=== PATIENT | male | born 1985 | race Two or more races ===

== ENCOUNTER 2020-01-22 22:35 | Emergency (ER) | payer SELFPAY ==
[~2020-01-22] VITALS: Ht 177.8 cm; Wt 91.9 kg
[2020-01-22 22:40] VITALS: BP 141/90
[2020-01-22] MEDS ORDERED: ACETAMINOPHEN 500 MG TABLET ONE (22:44)
--- NOTE | 2020-01-22 22:47 | NUR ---
HEEL DIPPER: PT MEDICATED PER STANDING ORDER FOR FEVER. LAST TYLENOL THIS AM.
[2020-01-22] MEDS ORDERED: ACETAMINOPHEN 500 MG TABLET PO ONE (23:00)
--- NOTE | 2020-01-23 00:36 | NUR ---
DC EDUCATION PROVIDED, PT DEMONSTRATES UNDERSTANDING. PT AMBULATED STEADILY TO DC WITH RN AND SO
== END 2020-01-23 00:37 | disposition home or self-care (01) ==
LOC: ED 23:54
DX: J02.8 Acute pharyngitis due to other specified organisms (principal); B97.89 Other viral agents as the cause of diseases classified elsewhere; R50.9 Fever, unspecified; R05 Cough
CPT/HCPCS: 71045; 87081; 87880; 99284

== ENCOUNTER 2020-01-29 23:15 | Emergency (ER) | payer OTHER ==
[~2020-01-29] VITALS: Ht 177.8 cm; Wt 85.8 kg
[2020-01-29] MEDS ORDERED: ONDANSETRON ODT 4 MG ONE (23:44)
[2020-01-29 23:57] LABS: BASOPHILS # (AUTO) 0.01 x10^3/uL (0-0.1); BASOPHILS % (AUTO) 0 % (0-1); EOSINOPHILS # (AUTO) 0.02 x10^3/uL (0-0.4); EOSINOPHILS % (AUTO) 0 % (1-7); LYMPHOCYTES # (AUTO) 1.15 x10^3/uL (1-3.4); LYMPHOCYTES % (AUTO) 22 % (22-44); MD NO; MEAN CORPUSCULAR HEMOGLOBIN 31.6 pg (27.5-34.5); MEAN CORPUSCULAR HGB CONC 34.2 g/dL (33.2-36.2); MEAN CORPUSCULAR VOLUME 92.4 fL (81-97); MEAN PLATELET VOLUME 7.1 fL (7.4-10.4); MONOCYTES # (AUTO) 0.47 x10^3/uL (0.2-0.8); MONOCYTES % (AUTO) 9 % (2-9); NEUTROPHILS # (AUTO) 3.53 x10^3/uL (1.8-6.8); NEUTROPHILS % (AUTO) 68 % (42-75); PLATELET COUNT 226 x10^3/uL (130-400); RED BLOOD COUNT 4.94 x10^6/uL (4.38-5.82); RED CELL DISTRIBUTION WIDTH 13.1 % (9.4-14.8)
[2020-01-30] MEDS ORDERED: ONDANSETRON ODT 4 MG PO ONE
[2020-01-30 00:07] LABS: ALANINE AMINOTRANSFERASE 33 U/L (12-78); ALBUMIN 3.7 g/dL (3.4-5.0); ANION GAP 5 mmol/L (5-15); CALCIUM 8.6 mg/dL (8.5-10.1); CHLORIDE 106 mmol/L (98-107); CREATININE 0.98 mg/dL (0.7-1.3)
[2020-01-30 00:10] LABS: ALKALINE PHOSPHATASE 81 U/L (45-117); BILIRUBIN,TOTAL 0.5 mg/dL (0.2-1.0)
[2020-01-30 00:31] VITALS: BP 120/81
--- NOTE | 2020-01-30 00:32 | NUR ---
BREAK RN: VSS, SPO2 AND BP MONITORING IN PLACE, NADN. LUNG SOUNDS CLEAR BUT DIMINISHED THROUGHOUT. CALL LIGHT IN REACH. PATIENT STILL C/O NAUSEA, WILL CONSULT WITH ERP
--- NOTE | 2020-01-30 01:08 | NUR ---
Patient given discharge instructions and they have confirmed that they understand the instructions. Patient ambulatory with steady gait.
--- NOTE | 2020-01-31 16:56 | NUR ---
ATTEMPTED TO CALL PATIENT WITH COVID-19 RESULTS. MESSAGE LEFT AT NUMBER ON FILE REQUESTING CALL-BACK.
== END 2020-01-30 01:19 | disposition home or self-care (01) ==
LOC: ED 01-30 00:06
DX: U07.1 COVID-19 (principal); J15.9 Unspecified bacterial pneumonia; R11.2 Nausea with vomiting, unspecified
CPT/HCPCS: 36415; 71045; 80053; 83690; 85025; 99284; Q0162; U0001